=== PATIENT | male | born 1955 | race Caucasian/White ===

== ENCOUNTER → 2016-09-23 | Outpatient (CLI) | payer MEDICARE ==
[2016-09-23 12:33] LABS: ANION GAP 11 (5-19); BLOOD UREA NITROGEN 13 mg/dL (7-20); CALCIUM 10.1 mg/dL (8.4-10.2); CARBON DIOXIDE 29 mmol/L (22-30); CHLORIDE 103 mmol/L (98-107); CHOLESTEROL 166.93 mg/dL (0-200); CREATININE RESULT 1.09 mg/dL (0.52-1.25); Direct HDL 38 mg/dL (>40); GLUCOSE 81 mg/dL (75-110); SODIUM 142.6 mmol/L (137-145); TRIGLYCERIDES 192 mg/dL (<150)
[2016-09-23 12:45] LABS: DIRECT LDL 90 mg/dL (<100)
[2016-09-23 13:03] LABS: VLDL CHOLESTEROL 38.4 mg/dL (10-31)
== END ==
LOC: OD 10:50
PROVIDERS: ATTEND Family Medicine
DX: E78.2 Mixed hyperlipidemia (principal); I10 Essential (primary) hypertension; Z79.899 Other long term (current) drug therapy; Z12.5 Encounter for screening for malignant neoplasm of prostate
CPT/HCPCS: 36415; 84443; 80048; 83036; 80061; G0103; 84153

== ENCOUNTER 2017-01-19 09:58 | Day surgery (SDC) | payer MEDICARE, MEDICAID ==
[~2017-01-19 09:58] MED LIST: KETOROLAC TROMETHAMINE 0.45% 4 DROP/0.4 ML DROPERETTE OS PRN
[2017-01-19] MEDS ORDERED: CHONDR SU A NA/HYALUR INTRAOC KIT (SURGICARE) ONE (10:07)
[2017-01-19] MEDS ORDERED: PHENYLEPHRINE/KETOROLAC 1%-0.3% 4 ML VIAL ONE (10:07)
[2017-01-19] MEDS ORDERED: LIDOCAINE 1% INJ-PF (10 MG/ML) 30 ML SDV ONE (10:07)
[2017-01-19] MEDS: BESIFLOXACIN HCL 0.6% OPH SUSP 5 ML BOTTLE OS PRN ×3 (10:23→11:47)
[2017-01-19] MEDS: CYCLOPENTOLATE 0.2%/PHENYLEPHRINE 1% OPH SOLN 2 ML OS PRN ×3 (10:23→10:43)
[2017-01-19] MEDS: TROPICAMIDE 1% OPH SOLN 3 ML OS PRN ×3 (10:23→10:43)
[2017-01-19] MEDS: TETRACAINE HCL 0.5% OPH SOLN 2 ML OS PRN ×3 (10:24→11:01)
[2017-01-19] MEDS ORDERED: MIDAZOLAM 2 MG/2 ML INJ ONE ×2 (10:38→11:33)
[2017-01-19] MEDS ORDERED: FENTANYL CITRATE INJ/PF 100 MCG/2 ML AMPUL ONE ×2 (10:38→11:33)
[2017-01-19] MEDS ORDERED: CHONDR SU A NA/HYALUR SOD 0.5 ML DISP.SYRIN ONE ×2 (11:24→11:30)
--- NOTE | 2017-01-19 17:48 | [facility] OPERATIVE REPORT E ---
[facility] Operative Report NAME: CRISS GLYNN AGE: 61Y DATE OF SURGERY: 01/19/2017 ROOM: PREOPERATIVE DIAGNOSIS: CATARACT, LEFT EYE. POSTOPERATIVE DIAGNOSIS: CATARACT, LEFT EYE. OPERATION: Cataract extraction with intraocular lens implant of the left eye. SURGEON: MARLENE HERNANDEZ M.D. ANESTHESIA: Topical. PROCEDURE: After obtaining appropriate consent, the patient's left eye was prepped and draped in sterile fashion as well as the surgeon in a sterile manner and cataract surgery was started. First a paracentesis blade was used to make a small side-port incision. Viscoelastic was used to inflate the anterior chamber. Next a 2.4 mm incision was made with the paracentesis blade. A continuous capsulorrhexis incision was made using a cystotome and Utrata forceps. Following this hydrodissection was carried out to make the lens fully loose and mobile and it was rotated 90 degrees. Following this, a aljnnm-enz-thhycgw technique was used to phacoemulsify the lens with a CDE of 10.89. The remaining cortex was removed with irrigation/aspiration. Provisc was instilled into the capsular bag to inflate the bag. A SN60WF, 21.5 diopter lens was placed. The remaining viscoelastic material was removed with irrigation/aspiration. Following this, a 10-0 nylon suture was used to close the incision and it was found to be watertight. Vigamox was instilled in the eye and a protective shield was placed over the eye. The patient returned to the postoperative recovery in stable condition. ADDENDUM: When making the capsulorhexis, the lens did start to go peripheral. This was re-directed and saved by using intraocular scissors and re-directed so that there was no posterior extension. DICTATING PHYSICIAN: MARLENE HERNANDEZ M.D. [id number] PHY#: [id number] ID: [id number] JOB#: [id number] ACCT: [id number] cc:MARLENE HERNANDEZ M.D. >
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
--- NOTE | 2017-01-20 12:01 | [facility]PERATIVE REPORT E ---
[facility] Operative Report NAME: CRISS GLYNN AGE: 61Y DATE OF SURGERY: 01/19/2017 ROOM: PREOPERATIVE DIAGNOSES: 1. Cataract, left eye. 2. Pupil myosis, left eye. POSTOPERATIVE DIAGNOSIS: 1. Cataract, left eye. 2. Pupil myosis, left eye. OPERATION: Complex cataract extraction with use of a Malyugin ring due to pupillary myosis. ADDENDUM: Prior to making the capsulorhexis, a Malyugin ring was inserted due to a very myotic pupil. DICTATING PHYSICIAN: MARLENE HERNANDEZ M.D. [id number] PHY#: [id number] ID: [id number] JOB#: [id number] ACCT: [id number] cc:MARLENE HERNANDEZ M.D. >
--- NOTE | 2017-01-24 12:34 | DISCHARGE SUMMARY E ---
Discharge Summary NAME: CRISS GLYNN : 1955 AGE: 61Y ADMITTED: 01/19/2017 DISCHARGED: 01/19/2017 ADDENDUM: Complex cataract extraction with use of a Malyugin ring. DIAGNOSES: 1. Cataract, left eye. 2. Pupil myosis of the left eye. DICTATING PHYSICIAN: MARLENE HERNANDEZ M.D. [id number] PHY#: [id number] ID: [id number] JOB#: [id number] ACCT: [id number] cc:MARLENE HERNANDEZ M.D. >
== END 2017-01-19 12:28 | disposition home or self-care (01) ==
LOC: SC 09:58
PROVIDERS: ATTEND Internal Medicine
PROC: 08RK3JZ Replacement of Left Lens with Synthetic Substitute, Percutaneous Approach (ICD-10-PCS; principal; 2017-01-19 11:30)
DX: H25.812 Combined forms of age-related cataract, left eye (principal); H57.03 Miosis; Z96.1 Presence of intraocular lens; H31.011 Macula scars of posterior pole (postinflammatory) (post-traumatic), right eye; H16.223 Keratoconjunctivitis sicca, not specified as Sjogren's, bilateral; Z98.41 Cataract extraction status, right eye; M19.90 Unspecified osteoarthritis, unspecified site; E78.00 Pure hypercholesterolemia, unspecified; F17.210 Nicotine dependence, cigarettes, uncomplicated; I47.1 Supraventricular tachycardia; M10.9 Gout, unspecified; K21.9 Gastro-esophageal reflux disease without esophagitis; Z88.0 Allergy status to penicillin; Z79.899 Other long term (current) drug therapy; Z86.73 Personal history of transient ischemic attack (TIA), and cerebral infarction without residual deficits
CPT/HCPCS: 66982; V2632; J2250; J3490 ×3; A9270; J3010; C9447; 142

== ENCOUNTER → 2017-10-02 | Outpatient (CLI) | payer MEDICARE, MEDICAID ==
[2017-10-02 10:52] LABS: ANION GAP 12 (5-19); BLOOD UREA NITROGEN 15 mg/dL (7-20); CARBON DIOXIDE 28 mmol/L (22-30); CHLORIDE 105 mmol/L (98-107); CHOLESTEROL 166.04 mg/dL (0-200); GLUCOSE 110 mg/dL (75-110); POTASSIUM 5.3 mmol/L (3.6-5.0); SODIUM 145.3 mmol/L (137-145); TRIGLYCERIDES 209 mg/dL (<150)
[2017-10-02 11:03] LABS: DIRECT LDL 91 mg/dL (<100)
[2017-10-02 11:06] LABS: VLDL CHOLESTEROL 41.8 mg/dL (10-31)
== END ==
LOC: OD 09:35
PROVIDERS: ATTEND Family Medicine
DX: E78.2 Mixed hyperlipidemia (principal); I10 Essential (primary) hypertension; N52.9 Male erectile dysfunction, unspecified; R39.12 Poor urinary stream; Z79.899 Other long term (current) drug therapy
CPT/HCPCS: 36415; 80048; 80061; 83036; 84153; 84443

== ENCOUNTER → 2019-12-18 | Outpatient (CLI) | payer MEDICARE, MEDICAID ==
[2019-12-18 11:03] LABS: ANION GAP 8 (5-19); BLOOD UREA NITROGEN 14 mg/dL (7-20); CALCIUM 9.6 mg/dL (8.4-10.2); CARBON DIOXIDE 29 mmol/L (22-30); CHLORIDE 103 mmol/L (98-107); CHOLESTEROL 130.54 mg/dL (0-200); GLUCOSE 111 mg/dL (75-110); POTASSIUM 5.2 mmol/L (3.6-5.0); TRIGLYCERIDES 132 mg/dL (<150)
[2019-12-18 11:14] LABS: DIRECT LDL 77 mg/dL (<100)
== END ==
LOC: OD 09:57
PROVIDERS: ATTEND Family Medicine
DX: E78.2 Mixed hyperlipidemia (principal); I10 Essential (primary) hypertension; N52.9 Male erectile dysfunction, unspecified; R39.12 Poor urinary stream; Z79.899 Other long term (current) drug therapy
CPT/HCPCS: 36415; 80048; 80061; 83036; 84153; 84443